=== PATIENT | male | born 2000 | race Two or more races ===

== ENCOUNTER 2022-08-03 00:15 | Emergency (ER) | payer BC ==
[~2022-08-03] VITALS: Ht 185.4 cm; Wt 124.8 kg
[2022-08-03] MEDS ORDERED: CEPH-510 PO (02:46)
[2022-08-03 02:52] VITALS: BP 120/76
== END 2022-08-03 03:23 | disposition home or self-care (01) ==
LOC: ER 00:15
DX: T63.441A Toxic effect of venom of bees, accidental (unintentional), initial encounter (principal); R22.0 Localized swelling, mass and lump, head; Y92.89 Other specified places as the place of occurrence of the external cause